=== PATIENT | male | born 1995 | race Caucasian/White ===

== ENCOUNTER 2022-02-05 10:55 | Emergency (ER) | payer OTHER ==
[~2022-02-05] VITALS: Ht 175.3 cm; Wt 79.4 kg
--- NOTE | 2022-02-05 10:55 | NUR ---
pt sat in [facility] with pd at this time
[2022-02-05 10:58] VITALS: BP 154/100
--- NOTE | 2022-02-05 11:04 | NUR ---
26 y/o male bib pd for prebook, per [facility], pt was under the influence of drugs and driving without a license. here for medical clearance, refused to speak to the nurse at the station. pt a&ox4, ambulates with steady gait, guarded demeanor. pmh: nicole desai med: denies
[2022-02-05 11:26] VITALS: BP 154/100
--- NOTE | 2022-02-05 11:26 | NUR ---
Patient discharged with v/s stable. Written and verbal after care instructions given and explained. Patient verbalized understanding. pt with Police in custody. All questions addressed prior to discharge. Advised to follow up with PMD.
== END 2022-02-05 11:26 ==
LOC: MED 10:55
DX: Z02.89 Encounter for other administrative examinations (principal)
CPT/HCPCS: 99283

== ENCOUNTER 2024-04-15 20:58 | Emergency (ER) | payer MEDICAID, OTHER ==
[~2024-04-15] VITALS: Ht 165.1 cm; Wt 56.7 kg
[2024-04-15 21:01] VITALS: BP 136/96; PULSE 82; RESP 16; TEMP 98.7; O2SAT 99
[2024-04-15] MEDS: IBUPROFEN 600 MG TAB PO ONE (21:14)
[2024-04-15 21:27] VITALS: BP 136/96; PULSE 82; RESP 16; TEMP 98.7; O2SAT 99
== END 2024-04-15 21:27 ==
LOC: MED 20:58
DX: S09.90XA Unspecified injury of head, initial encounter (principal); R03.0 Elevated blood-pressure reading, without diagnosis of hypertension; W22.8XXA Striking against or struck by other objects, initial encounter; Y92.89 Other specified places as the place of occurrence of the external cause; Y93.89 Activity, other specified; Y99.8 Other external cause status
CPT/HCPCS: 99283